=== PATIENT | male | born 1945 | race Caucasian/White ===

== ENCOUNTER 2017-08-06 05:54 | Inpatient (IN) | payer OTHER, MEDICARE ==
--- NOTE | 2017-08-05 08:58 | HP ---
Satellite [facility] - Chief Complaint Chief Complaint: right hip pain - Past Medical History Allergies/Adverse Reactions: Allergies Allergy/AdvReac Type Severity Reaction Status Date / Time No Known Allergies Allergy Verified 07/29/17 14:51 - Current Medications Current Medications: Home Medications Medication Instructions Recorded Ferrous Sulfate 325 mg PO DAILY 07/29/17 Glucosamine/Chondr Craig A Sod [Osteo 1 each PO DAILY 07/29/17 Bi-Flex Caplet] Hydrochlorothiazide 25 mg PO HS 07/29/17 Multivit-Min/FA/Lycopen/Lutein 1 each PO DAILY 07/29/17 [Centrum Silver Tablet] Ramipril 10 mg PO HS 07/29/17 Tamsulosin HCl 0.4 mg PO BID 07/29/17 Satellite Physical Exam - Physical Examination General Appearance: Well Nourished, Well Developed, Alert & Oriented x3 ENT: Clear Lung: Normal air movement Heart: Regular rate & rhythm Extremities: Other (right hip- + ttp, dec rom, nvi xrays show grade 4 hip djd) Neurological: Intact, Alert, Oriented Satellite Impression/Plan - Impression/Plan Impression: right hip djd Operative Procedure: right dejan thr Date to be Performed: 08/06/17
[2017-08-06] MEDS ORDERED: TRANEXAMIC ACID 1000 MG/10 ML VIAL IVPUSH ONE (06:38)
[2017-08-06] MEDS ORDERED: GABAPENTIN 300 MG CAPSULE (FP) PO ONE (06:38)
[2017-08-06] MEDS ORDERED: CEFAZOLIN 2 GM/D5W 2 GM/50 ML ML IVPB ONE (06:38)
[2017-08-06] MEDS ORDERED: oxyCODONE HCL 10 MG SUSTAINED ACTING TABLET PO ONE (06:38)
[2017-08-06] MEDS ORDERED: CELECOXIB 200 MG CAPSULE PO ONE (06:38)
[2017-08-06] MEDS ORDERED: CELECOXIB 200 MG CAPSULE ONE (06:41)
[2017-08-06] MEDS ORDERED: oxyCODONE HCL 10 MG SUSTAINED ACTING TABLET ONE (06:41)
[2017-08-06] MEDS ORDERED: GABAPENTIN 300 MG CAPSULE (FP) ONE (06:41)
[2017-08-06 07:04] VITALS: BMI 32.1
[2017-08-06] MEDS ORDERED: PROPOFOL 20 ML ONE ×3 (07:32)
[2017-08-06] MEDS ORDERED: ePHEDrine SULFATE 50 MG/1 ML AMPULE ONE ×2 (07:32→08:28)
[2017-08-06] MEDS ORDERED: SUCCINYLCHOLINE CHLORIDE 200 MG/10 ML VIAL ONE (07:32)
[2017-08-06] MEDS ORDERED: MIDAZOLAM HCL 2 MG/2 ML SINGLE DOSE VIAL ONE (07:37)
[2017-08-06] MEDS ORDERED: DEXAMETHASONE SOD PHOSPHATE/PF 10 MG/ML SDV ONE (07:37)
[2017-08-06] MEDS ORDERED: BUPIVACAINE HCL/PF (5 MG/ML) 30 ML VIAL IJ ONE (07:37)
[2017-08-06] MEDS ORDERED: VANCOMYCIN 1,000 MG VIAL (RESTRICTED TO ID ONLY) ONE (07:46)
[2017-08-06] MEDS ORDERED: ceFAZolin SODIUM 1 GM VIAL ONE ×2 (07:46→09:21)
[2017-08-06] MEDS ORDERED: BUPIVACAINE HCL/PF 0.5% (5MG/ML) 10 ML VIAL ONE (07:54)
[2017-08-06] MEDS ORDERED: TRANEXAMIC ACID 1000 MG/10 ML VIAL ONE ×2 (09:21)
[2017-08-06] MEDS ORDERED: MAG HYDROX/AL HYDROX/SIMETH 30 ML UNIT-DOSE CUP PO PRN (09:58)
[2017-08-06] MEDS ORDERED: LACTATED RINGERS SOLUTION 1,000 ML IV SCH (10:00)
--- NOTE | 2017-08-06 10:00 | OP ---
Operative Note - Note: Operative Date: 08/06/17 (janett) Pre-Operative Diagnosis: right hip djd Operation: right dejan thr Post-Operative Diagnosis: Same as Pre-op Surgeon: Jose Boyce Gamma Operator: Rashad Lundberg Anesthesiologist/VACUUM FILTER OPERATOR: Jose Sapp Anesthesia: Spinal, Local Specimens Removed: femoral head Estimated Blood Loss (mls): 100 Operative Report Dictated: Yes
[2017-08-06] MEDS ORDERED: oxyCODONE HCL 5 MG TABLET PO PRN (10:47)
[2017-08-06] MEDS ORDERED: ACETAMINOPHEN 325 MG TABLET (FP) PO ONE (10:56)
[2017-08-06] MEDS: ACETAMINOPHEN 325 MG TABLET (FP) PO SCH ×2 (11:34→16:24)
[2017-08-06] MEDS: SENNOSIDES/DOCUSATE COMBO (SENNA PLUS) TABLET (UD) PO SCH ×2 (12:41→21:47)
[2017-08-06] MEDS: MULTIVITAMINS (DAILY MVI) TABLET (FP) PO SCH (12:41)
[2017-08-06] MEDS: FERROUS SO4 325 MG TABLET (FP) PO SCH (12:42)
[2017-08-06] MEDS: PANTOPRAZOLE 40 MG TABLET (FP) PO SCH (12:42)
[2017-08-06] MEDS: oxyCODONE HCL 5 MG TABLET PO PRN ×3 (12:42→21:00)
[2017-08-06] MEDS: ONDANSETRON 4 MG/2 ML VIAL IVPUSH PRN ×2 (12:47→21:45)
--- NOTE | 2017-08-06 14:22 | SPEC ---
DATE OF OPERATION: 08/06/2017 PREOPERATIVE DIAGNOSIS: Degenerative joint disease right hip. POSTOPERATIVE DIAGNOSIS: Degenerative joint disease right hip. PROCEDURE PERFORMED: Right total hip replacement with robotic-assisted navigation (MAKOplasty). SURGICAL ATTENDING: Jose Boyce MD PILE TRIMMER: YADI Shea ANESTHESIA: Regional and spinal. CLOSURE: A 58 Tritanium press-fit acetabulum, a No. 6 femoral Accolade II stem, a metallic 36-mm +0 head, 2 screws in the acetabulum. Number 1 Vicryl for fascia, 0 and 2-0 subcutaneous, 3-0 Monocryl subcuticular for skin with skin glue. ESTIMATED BLOOD LOSS: Less than 100 mL. COMPLICATIONS: None. CONDITION: To the recovery room in stable condition. DESCRIPTION OF PROCEDURE: The patient was taken to the operating room on August 06, 2017. General and regional anesthesia was administered by the anesthesiologist. IV Kefzol and TXA were administered prophylactically prior to the case. The patient was placed in the lateral decubitus position will all prominences well-padded. The right hip area was prepped and draped in the usual sterile fashion. Using 3 small stab incisions over the iliac crest, 3 threaded pins were drilled in power fashion through the 2 tables of the crest. These pins were fastened and the navigation array for the [place] navigation system. Next, a 12 to 15-cm curved longitudinal incision over the posterolateral aspect of the greater trochanter was incised. Hemostasis was achieved with Bovie cautery. Sharp dissection was carried down to level of the fascia. The fascia was opened the entire length of the incision, spreading the fibers of the gluteus rogelio in the direction of origin. A Charnley retractor was placed in this layer. Care was taken not to impale the sciatic nerve. The short external rotators were detached off the insertion of the greater trochanter and peeled off the capsule. A posterior capsulotomy was then performed. A check point was malleted into the greater trochanter and a point on the inferior pole of the patella was obtained as well. These 2 points were used to assess the preoperative offset and limb lengths of the hip. The hip was then dislocated. The femoral neck was then osteotomized down to the appropriate level as directed by the navigation device. Anterior and posterior retractors were placed, exposing the acetabulum. A circumferential labral excision was performed. A check point was malleted into the acetabulum as well. Multiple sites inside the acetabulum and around the rim were utilized to register the acetabulum with the navigation device. An excellent registration of less than 0.5 mm was obtained. The hip was then reamed with the appropriate reamer down to the appropriate depth, with the appropriate orientation and version as assessed on our preoperative plan for this patient. The reamer was removed and the acetabulum was inspected to have good bleeding surfaces throughout. The real acetabular cup was then malleted down into place, with the holes in the appropriate position, until an excellent fixation was obtained. No screws were necessary. The navigation device ensured appropriate orientation and version, with the depth as predetermined. The appropriate liner was then clipped into place. Attention was directed to the femur. The proximal femur was prepared by use a box chisel, a canal finder and serial broaches until the broach achieved excellent rigidity in the proximal femur with the appropriate version being applied. A calcar planer was used to smooth off the calcar flush with the trial components. A trial reduction with the appropriate head was done, and the hip was reduced. The hip was taken through a range of motion from full extension with external rotation to marked flexion, and was stable at 90 degrees of flexion. It was stable to marked abduction and internal rotation, with a positive hang test and negative telescoping. Limb lengths were ascertained visually as well as with the navigation device to be within the targeted range for this patient. The trial component was removed. The real component was then malleted into place. The head was cold welded to the trunnion, and the hip was reduced. Range of motion, stability and limb lengths were as described in the trial component. Then the hip was pulse antibiotic irrigated. Vancomycin powder was placed in the hip joint. The capsule was closed. The fascia was then closed as well using number 1 Vicryl interrupted suture, 0 and 2-0 subcutaneous, and 3-0 Monocryl subcuticular for the skin. 4-0 undyed Vicryl was used to close the pin sites after the pins were removed. All check points were also removed. Sterile Aquacel dressing was applied. The patient was awakened from anesthesia and transferred into the supine position. Bilateral SCDs and an abduction pillow were placed. X-rays revealed excellent position of the components. The patient was transferred to the recovery room in stable condition, with no complications. Estimated blood loss was less than 100 mL. Julia [id number]
[2017-08-06] MEDS ORDERED: DESFLURANE GAS 240 ML BOTTLE IH ONE (14:41)
[2017-08-06] MEDS: CEFAZOLIN 2 GM/D5W 2 GM/50 ML ML IVPB SCH (16:23)
[2017-08-06] MEDS: TAMSULOSIN HCL 0.4 MG CAP.ER.24H (FP) PO SCH (18:38)
[2017-08-06] MEDS: HYDROCHLOROTHIAZIDE 25 MG TABLET (FP) PO SCH (21:47)
[2017-08-06] MEDS ORDERED: PATIENT'S OWN MEDICATION (NON-FORMULARY) (Ramipril [Ramipril] 10 MG) PO SCH (22:00)
[2017-08-07] MEDS: CEFAZOLIN 2 GM/D5W 2 GM/50 ML ML IVPB SCH (00:12)
[2017-08-07] MEDS: ACETAMINOPHEN 325 MG TABLET (FP) PO SCH ×4 (01:12→22:40)
--- NOTE | 2017-08-07 07:42 | PN ---
Progress Note (short form) - Note Progress Note: Ortho Pt seen and examined s/p right dejan thr pod #1 Selected Entries 08/07/17 04:48 Temperature 97.6 F Pulse Rate 88 Respiratory 18 Rate Blood Pressure 124/58 dressing c/d/i, calf soft, nt nvi cbc pending a/p PT hip precautions dvt ppx pain control d/c home tomorrow if stable
[2017-08-07 08:39] LABS: HEMOGLOBIN 11.7 GM/dl (11.7-16.9); MCH 30.6 pg (25.7-33.7); MCHC 33.4 g/dl (32.0-35.9); MEAN CELL VOLUME 91.6 fl (80-96); MEAN PLT VOLUME 8.5 fl (7.5-11.1); PLATELET COUNT 180 K/MM3 (134-434); RBC 3.82 M/mm3 (4.00-5.60); RDW 14.3 % (11.9-15.9); WHITE BLOOD COUNT 9.8 K/mm3 (4.0-10.8)
[2017-08-07] MEDS: SENNOSIDES/DOCUSATE COMBO (SENNA PLUS) TABLET (UD) PO SCH ×2 (10:29→21:22)
[2017-08-07] MEDS: FERROUS SO4 325 MG TABLET (FP) PO SCH (10:29)
[2017-08-07] MEDS: MULTIVITAMINS (DAILY MVI) TABLET (FP) PO SCH (10:29)
[2017-08-07] MEDS: KETOROLAC TROMETHAMINE 30 MG/1 ML VIAL IVPUSH SCH ×3 (10:29→20:20)
[2017-08-07] MEDS: PANTOPRAZOLE 40 MG TABLET (FP) PO SCH (10:29)
[2017-08-07] MEDS: TAMSULOSIN HCL 0.4 MG CAP.ER.24H (FP) PO SCH ×2 (10:29→18:28)
[2017-08-07] MEDS: ASPIRIN 325 MG TABLET PO SCH (10:31)
--- NOTE | 2017-08-07 12:05 | PN ---
Progress Note (short form) - Note Progress Note: 72M POD1 s/p R THR under spinal anesthetic with peripheral nerve blocks for post operative pain. Pt states that pain is well controlled, reports no anesthetic complications, sensory and motor function is intact in bilateral lower extremities.
[2017-08-07] MEDS: MAGNESIUM HYDROX 2400MG/30ML ORAL SUSPENSION 30 ML CUP PO PRN (16:09)
[2017-08-07] MEDS: ONDANSETRON 4 MG/2 ML VIAL IVPUSH PRN (20:20)
[2017-08-07] MEDS: HYDROCHLOROTHIAZIDE 25 MG TABLET (FP) PO SCH (20:21)
[2017-08-07] MEDS ORDERED: RAMIPRIL 5 MG CAPSULE (FP) PO SCH (22:00)
[2017-08-08 05:00] VITALS: BP 145/60; PULSE 88; TEMP 98.4
[2017-08-08] MEDS: ACETAMINOPHEN 325 MG TABLET (FP) PO SCH (05:53)
[2017-08-08] MEDS: KETOROLAC TROMETHAMINE 30 MG/1 ML VIAL IVPUSH SCH (05:54)
--- NOTE | 2017-08-08 07:56 | DS ---
Physical Examination Vital Signs: Vital Signs Temperature 98.4 F 08/08/17 04:58 Pulse Rate 88 08/08/17 04:58 Respiratory Rate 19 08/08/17 04:58 Blood Pressure 145/60 08/08/17 04:58 O2 Sat by Pulse Oximetry (%) 94 L 08/07/17 21:00 Labs: CBC, BMP 08/07/17 08:20 Discharge Summary Reason For Visit: OSTEOARTHRITIS Procedures: Principal: s/p right dejan thr Hospital Course: admitted for elective right dejan thr, uneventful post-op, stable for d/c Condition: Good - Instructions Diet, Activity, Other Instructions: Post-op Instructions-Total Hip Replacement Call the office for a follow-up appointment in 1 week - [phone] Aspirin 325mg daily for 6 weeks. Pain medication was sent into your pharmacy. Apply Graduated Compression Stockings (TEDs) to both lower extremities- remove daily for hygiene ONLY Apply Sequential Compression Device (SCDs) to both Lower extremities remove for PT and hygiene ONLY Apply cold packs to affected area for 15 minutes every 2 hours. Physical Therapist will come to your home for the first 5 days. You will be set up with outpatient PT at your first post-operative visit. Patient may ambulate as tolerated-encourage self care (at least every 2-3 hours while awake) with walker or cane Maintain Aquacel (waterproof) dressing to operative wound (will be removed by surgeon at first office visit) Shower with Aquacel dressing in place-if Aquacel integrity compromised, remove and apply dry sterile dressing and notify Orthopedist. DO NOT SHOWER unless Orthopedists approves without Aquacel dressing CONTACT THE OFFICE FOR ANY CHANGE IN YOUR CONDITION (for example-fever greater than 102 degrees, excessive bleeding from operative site, purulent drainage, severe swelling or pain) GO TO THE EMERGENCY ROOM IF THERE IS A MEDICAL EMERGENCY Hip Precautions: * Keep a rolled towel under affected heel while in bed or chair (to keep knee in extension) * Dependent upon approach: * Posterior - do not cross legs; do not sit on low chairs or toilets. * If you have any questions, please do not hesitate to call the office - [phone]. Referrals: Jose Boyce MD [Staff Physician] - Disposition: VNS/HOME HEALTH CARE - Home Medications Comprehensive Discharge Medication List: Ambulatory Orders Ferrous Sulfate 325 mg PO DAILY 07/29/17 Glucosamine/Chondr Craig A Sod [Osteo Bi-Flex Caplet] 1 each PO DAILY 07/29/17 Hydrochlorothiazide 25 mg PO HS 07/29/17 Multivit-Min/FA/Lycopen/Lutein [Centrum Silver Tablet] 1 each PO DAILY 07/29/17 Ramipril 10 mg PO HS 07/29/17 Tamsulosin HCl 0.4 mg PO BID 07/29/17 Aspirin [ASA -] 325 mg PO DAILY@0800 tablet 08/06/17 Oxycodone HCl/Acetaminophen [Percocet 5-325 mg Tablet] 1 - 2 tab PO Q6H #50 tab MDD 8 08/06/17
--- NOTE | 2017-08-08 07:56 | PN ---
Progress Note (short form) - Note Progress Note: Ortho Pt seen and examined s/p right dejan thr pod #2 Selected Entries 08/08/17 04:58 Temperature 98.4 F Pulse Rate 88 Respiratory 19 Rate Blood Pressure 145/60 Laboratory Tests 08/07/17 08:20 WBC 9.8 Hgb 11.7 Hct 35.0 L Plt Count 180 dressing c/d/i, calf soft, nt nvi a/p PT hip precautions dvt ppx pain control d/c home tomorrow if stable
[2017-08-08 08:52] LABS: HEMATOCRIT 34.8 % (35.4-49); HEMOGLOBIN 11.6 GM/dl (11.7-16.9); MCH 30.5 pg (25.7-33.7); MCHC 33.5 g/dl (32.0-35.9); MEAN CELL VOLUME 91.2 fl (80-96); MEAN PLT VOLUME 8.5 fl (7.5-11.1); PLATELET COUNT 177 K/MM3 (134-434); RBC 3.81 M/mm3 (4.00-5.60); RDW 14.3 % (11.9-15.9); WHITE BLOOD COUNT 10.3 K/mm3 (4.0-10.8)
[2017-08-08] MEDS: ASPIRIN 325 MG TABLET PO SCH (10:02)
[2017-08-08] MEDS: SENNOSIDES/DOCUSATE COMBO (SENNA PLUS) TABLET (UD) PO SCH (10:02)
[2017-08-08] MEDS: PANTOPRAZOLE 40 MG TABLET (FP) PO SCH (10:02)
[2017-08-08] MEDS: TAMSULOSIN HCL 0.4 MG CAP.ER.24H (FP) PO SCH (10:02)
[2017-08-08] MEDS: FERROUS SO4 325 MG TABLET (FP) PO SCH (10:02)
[2017-08-08] MEDS: MULTIVITAMINS (DAILY MVI) TABLET (FP) PO SCH (10:03)
[2017-08-08] MEDS: MAGNESIUM HYDROX 2400MG/30ML ORAL SUSPENSION 30 ML CUP PO PRN (10:03)
--- NOTE | 2017-08-13 16:29 | PATH ---
Surgical Pathology Report Patient Name: CASTILLO DALY Med. Rec. #: [id number] /Age/Gender: 1945 (Age: 72) / M Account: [id number] Location: [facility] Taken: 08/06/2017 Received: 08/06/2017 Reported: 08/13/2017 Physicians: Jose Boyce M.D. Specimen(s) Received RIGHT FEMORAL HEAD Clinical History Osteoarthritis Final Diagnosis FEMORAL HEAD, RIGHT, TOTAL HIP REPLACEMENT: DEGENERATIVE JOINT DISEASE. Electronically Signed Wendy Buckley M.D. Gross Description Received in formalin, labeled "right femoral head," is a 4.7 x 4.7 x 4.0 cm. femoral head with 0.8 cm in length portion of femoral neck attached. The margin of resection is smooth. There is a 3.0 cm in greatest dimension area of eburnation present. The remaining articular surface is ignacio-yellow and diffusely granular. The underlying trabecular bone is yellow and hard. A regional sales representative section is submitted in one cassette, following decalcification. 08/07/201708/07/2017
== END 2017-08-08 12:15 | disposition home health service (06) | DRG 470 ==
LOC: FM/S 05:54
PROVIDERS: ADMIT Orthopaedic Surgery; ATTEND Orthopaedic Surgery
PROC: 8E0Y0CZ Robotic Assisted Procedure of Lower Extremity, Open Approach (ICD-10-PCS; 2017-08-06)
PROC: 0SR90JZ Replacement of Right Hip Joint with Synthetic Substitute, Open Approach (ICD-10-PCS; principal; 2017-08-06 08:32)
DX: M16.11 Unilateral primary osteoarthritis, right hip (principal); I10 Essential (primary) hypertension
CPT/HCPCS: 36415; 73502-TC-RT; 85027; 94010; 94760; 97116-GP; 97162-GP

== ENCOUNTER 2023-04-08 07:35 | Day surgery (SDC) | payer OTHER ==
[2023-04-04 13:28] VITALS: BMI 34.0
[2023-04-08] MEDS ORDERED: TRANEXAMIC ACID 1000 MG/10 ML VIAL ONE ×3 (09:14→13:51)
[2023-04-08] MEDS ORDERED: THROMBIN (BOVINE) 5,000 UNIT VIAL TP ONE (09:14)
[2023-04-08] MEDS ORDERED: VANCOMYCIN 1,000 MG VIAL (RESTRICTED TO ID ONLY) ONE ×2 (09:14→11:45)
[2023-04-08] MEDS ORDERED: MIDAZOLAM HCL 2 MG/2 ML SINGLE DOSE VIAL ONE ×2 (09:37→13:59)
[2023-04-08] MEDS ORDERED: ROPIVACAINE HCL 0.5% 30ML VIAL ONE (09:37)
[2023-04-08] MEDS ORDERED: ONDANSETRON 4 MG/2 ML VIAL ONE (09:37)
[2023-04-08] MEDS ORDERED: DEXAMETHASONE SOD PHOSPHATE 4 MG/1 ML VIAL ONE (09:37)
[2023-04-08] MEDS ORDERED: CEFAZOLIN 2 GM in DEXTROSE 5%-WATER - 50 ML IVPB ONE (11:00)
[2023-04-08] MEDS ORDERED: BUPIVACAINE HCL/PF 0.5% (5MG/ML) 10 ML VIAL ONE (11:11)
[2023-04-08] MEDS ORDERED: ceFAZolin SODIUM 1 GM VIAL ONE (11:38)
[2023-04-08] MEDS ORDERED: ePHEDrine SULFATE 50 MG/1 ML AMPULE ONE (12:13)
[2023-04-08] MEDS ORDERED: BUPIVICAINE 0.25%/MORPH PF/KETOROLAC - 51ML DISP.SYRINGE IA ONE ×2 (12:41→14:10)
[2023-04-08] MEDS ORDERED: PROPOFOL 20 ML ONE (13:28)
[2023-04-08] MEDS ORDERED: VANCOMYCIN 1,000 MG VIAL (RESTRICTED TO ID ONLY) IVPB ONE (13:54)
[2023-04-08] MEDS ORDERED: KETAMINE HCL 200 MG/20 ML VIAL ONE (14:12)
[2023-04-08] MEDS ORDERED: ACETAMINOPHEN 1000 MG/100 ML BAG IVPB ONE (14:58)
[2023-04-08] MEDS ORDERED: oxyCODONE HCL 5 MG TABLET PO PRN (14:58)
[2023-04-08] MEDS ORDERED: LACTATED RINGERS SOLUTION 1,000 ML IV SCH ×2 (15:00→15:15)
[2023-04-08] MEDS ORDERED: FENTANYL CITRATE/PF 50 MCG/ML VIAL ONE ×2 (15:09→15:29)
[2023-04-08] MEDS ORDERED: MAGNESIUM HYDROX 2400MG/30ML ORAL SUSPENSION 30 ML CUP PO PRN (15:14)
[2023-04-08] MEDS ORDERED: MAG HYDROX/AL HYDROX/SIMETH 30 ML UNIT-DOSE CUP PO PRN (15:14)
[2023-04-08] MEDS ORDERED: ONDANSETRON 4 MG/2 ML VIAL IVPUSH PRN (15:14)
[2023-04-08] MEDS: oxyCODONE HCL 5 MG TABLET PO PRN (18:17)
[2023-04-08] MEDS ORDERED: TRANEXAMIC ACID 1000 MG/10 ML VIAL IVPUSH ONE (20:28)
[2023-04-08] MEDS: GABAPENTIN 300 MG CAPSULE PO SCH (21:47)
[2023-04-08] MEDS: CEFAZOLIN SODIUM 2 GM in DEXTROSE 5%-WATER 100 ML IVPB SCH (21:47)
[2023-04-08] MEDS: SENNOSIDES/DOCUSATE COMBO (SENNA PLUS) TABLET (UD) PO SCH (21:47)
[2023-04-08] MEDS: ACETAMINOPHEN 500 MG TABLET (FP) PO SCH (21:48)
[2023-04-08] MEDS: TAMSULOSIN HCL 0.4 MG CAP PO SCH (21:48)
[2023-04-09] MEDS: ACETAMINOPHEN 500 MG TABLET (FP) PO SCH ×2 (03:07→09:23)
[2023-04-09] MEDS: CEFAZOLIN SODIUM 2 GM in DEXTROSE 5%-WATER 100 ML IVPB SCH (04:45)
[2023-04-09] MEDS: oxyCODONE HCL 5 MG TABLET PO PRN ×2 (06:07→09:22)
[2023-04-09 08:24] LABS: HEMATOCRIT 30.8 % (35.4-49); HEMOGLOBIN 9.9 G/dL (11.7-16.9); MCH 30.9 pg (25.7-33.7); MCHC 32.1 g/dl (32.0-35.9); MEAN CELL VOLUME 96.4 fl (80-96); MEAN PLT VOLUME 8.3 fl (7.5-11.1); PLATELET COUNT 205.6 10^3/uL (134-434); RDW 17.1 % (11.9-15.9)
[2023-04-09 08:32] LABS: BLOOD UREA NITROGEN 20.4 mg/dl (7-18); CALCIUM 7.9 mg/dl (8.5-10.1); CREATININE 0.8 mg/dl (0.6-1.3); POTASSIUM 4.4 mmol/L (3.5-5.1)
[2023-04-09] MEDS: SENNOSIDES/DOCUSATE COMBO (SENNA PLUS) TABLET (UD) PO SCH (09:20)
[2023-04-09] MEDS: GABAPENTIN 300 MG CAPSULE PO SCH (09:21)
[2023-04-09] MEDS: TAMSULOSIN HCL 0.4 MG CAP PO SCH (09:21)
[2023-04-09 09:32] VITALS: BP 128/54; PULSE 96; RESP 18; TEMP 99.2
[2023-04-09] MEDS ORDERED: ASPIRIN 81 MG CHEWABLE TABLETS PO SCH (10:00)
[2023-04-09] MEDS ORDERED: PATIENT'S OWN MEDICATION (NON-FORMULARY) (Omeprazole [Omeprazole] 20 MG Tablet.Dr) PO SCH (10:00)
[2023-04-09] MEDS ORDERED: RAMIPRIL 5 MG CAPSULE PO SCH (10:00)
[2023-04-09] MEDS ORDERED: amLODIPine BESYLATE 10 MG TABLET (FP) PO SCH (10:00)
[2023-04-09] MEDS ORDERED: FUROSEMIDE 20 MG TABLET (FP) PO SCH (10:00)
[2023-04-09] MEDS ORDERED: PANTOPRAZOLE 40 MG TABLET PO SCH (10:00)
[2023-04-09] MEDS ORDERED: valACYclovir HCL 500 MG TABLET (FP) PO SCH (10:00)
== END 2023-04-09 11:48 | disposition home or self-care (01) ==
LOC: FASUSAT 07:35 → SUATTDRO 07:35 → FM/S 16:21 → FASUSAT 04-09 11:48
PROVIDERS: ATTEND Internal Medicine
PROC: 8E0Y0CZ Robotic Assisted Procedure of Lower Extremity, Open Approach (ICD-10-PCS; 2023-04-08)
PROC: 0SRB0JA Replacement of Left Hip Joint with Synthetic Substitute, Uncemented, Open Approach (ICD-10-PCS; principal; 2023-04-08 12:15)
DX: M16.12 Unilateral primary osteoarthritis, left hip (principal)
CPT/HCPCS: 20985; 27130; C1776; S2900; 36415; 73502-TC-LT-FY; 80048; 85027; 86850; 86900; 86901; 88305-TC; 88311-TC; 94760; 97010-GP; 97116-GP; 97162-GP; C1889

== ENCOUNTER 2024-05-10 16:17 | Emergency (ER) | payer OTHER ==
[2024-05-10 16:28] VITALS: BP 168/90; TEMP 98.2; BMI 33.4
[2024-05-10 18:37] LABS: EPI CELLS 6 /uL (0-25.1); HYALINE CASTS 2 /uL (0-3.1); URINE APPEARANCE CLOUDY; URINE BACTERIA 6 /uL (0-1359); URINE BILIRUBIN NEGATIVE (NEGATIVE); URINE COLOR ORANGE; URINE GLUCOSE (UA) NEGATIVE (NEGATIVE); URINE KETONE NEGATIVE (NEGATIVE); URINE LEUK ESTERASE 1+ (NEGATIVE); URINE NITRITE NEGATIVE (NEGATIVE); URINE PROTEIN 2+ (NEGATIVE); URINE RBC 27785 /uL (0-23.9); URINE WBC 45 /uL (0-25.8)
[2024-05-10 19:12] VITALS: PULSE 72; RESP 18
== END 2024-05-10 19:12 | disposition home or self-care (01) ==
LOC: JER 16:17
PROC: 0T2BX0Z Change Drainage Device in Bladder, External Approach (ICD-10-PCS; principal; 2024-05-10)
DX: R33.9 Retention of urine, unspecified (principal)
CPT/HCPCS: 76775-TC; 81003; 87086; 99284-25

== ENCOUNTER 2024-05-12 10:54 | Emergency (ER) | payer OTHER ==
[2024-05-12 11:02] VITALS: BP 132/66; PULSE 110; RESP 16; TEMP 97.8; BMI 29.4
[2024-05-12] MEDS ORDERED: LIDOCAINE HCL 2% JELLY 6 ML TP ONE (13:16)
[2024-05-12] MEDS: LIDOCAINE HCL 2% JELLY 10 ML CARTRIDGE UR ONE (13:37)
== END 2024-05-12 13:56 | disposition home or self-care (01) ==
LOC: JER 10:54
DX: N36.8 Other specified disorders of urethra (principal); R31.9 Hematuria, unspecified
CPT/HCPCS: 99284-25

== ENCOUNTER 2024-05-15 19:32 | Emergency (ER) | payer OTHER ==
[2024-05-15 19:40] VITALS: RESP 18; TEMP 97.6; BMI 28.7
[2024-05-15 21:15] LABS: EPI CELLS 5 /uL (0-25.1); HYALINE CASTS 2 /uL (0-3.1); URINE APPEARANCE CLOUDY; URINE BILIRUBIN 1+ (NEGATIVE); URINE COLOR RED; URINE GLUCOSE (UA) NEGATIVE (NEGATIVE); URINE KETONE NEGATIVE (NEGATIVE); URINE LEUK ESTERASE 2+ (NEGATIVE); URINE NITRITE POSITIVE (NEGATIVE); URINE PROTEIN 3+ (NEGATIVE); URINE RBC 9680 /uL (0-23.9); URINE UROBILINOGEN 0.2 mg/dL (0.2-1.0); URINE WBC 121 /uL (0-25.8)
[2024-05-15] MEDS ORDERED: CEPHALEXIN MONOHYDRATE 500 MG CAPSULE (UD) ONE (21:53)
[2024-05-15 22:18] LABS: HEMATOCRIT 25.2 % (35.4-49); MCH 25.9 pg (25.7-33.7); MCHC 31.8 g/dl (32.0-35.9); MEAN CELL VOLUME 81.7 fl (80-96); MEAN PLT VOLUME 6.6 fl (7.5-11.1); PLATELET COUNT 243 10^3/uL (134-434); RBC 3.09 M/mm3 (4.00-5.60); RDW 23.5 % (11.9-15.9); WHITE BLOOD COUNT 8.1 K/mm3 (4.0-10.0)
[2024-05-15] MEDS: CEPHALEXIN MONOHYDRATE 500 MG CAPSULE (UD) PO ONE ×2 (22:20→22:23)
[2024-05-15 22:26] LABS: ADD RBC MORPHOLOGY YES
[2024-05-15 22:31] LABS: INR 1.06 (0.83-1.09); PROTHROMBIN TIME (PATIENT) 12.2 SEC (9.7-13.0)
[2024-05-15 22:34] LABS: ACTIVATED PTT 27.6 SECONDS (25.2-36.5)
[2024-05-15 22:52] LABS: ANISOCYTOSIS 2+; MACROCYTOSIS 0
[2024-05-15 22:59] LABS: POTASSIUM 3.7 mmol/L (3.5-5.1)
[2024-05-15 23:01] LABS: ALBUMIN 1.7 g/dl (3.4-5.0); BLOOD UREA NITROGEN 33.2 mg/dL (7-18); CALCIUM 8.2 mg/dL (8.5-10.1)
[2024-05-15 23:04] LABS: CREATININE 1.1 mg/dL (0.55-1.3)
[2024-05-15 23:06] LABS: BILIRUBIN,TOTAL 0.3 mg/dL (0.2-1); TOT PROT 8.8 g/dl (6.4-8.2)
[2024-05-16 01:12] VITALS: BP 131/70; PULSE 88
== END 2024-05-16 01:59 | disposition home or self-care (01) ==
LOC: JER 19:32
DX: T83.091A Other mechanical complication of indwelling urethral catheter, initial encounter (principal); R31.9 Hematuria, unspecified; N30.90 Cystitis, unspecified without hematuria; R33.9 Retention of urine, unspecified
CPT/HCPCS: 36415; 74176-TC; 80053; 81003; 85025; 85610; 85730; 86850; 86900; 86901; 87086; 99284-25

== ENCOUNTER 2024-05-17 14:21 | Emergency (ER) | payer OTHER ==
[2024-05-17 14:32] VITALS: BP 126/63; PULSE 99; RESP 16; TEMP 98.4; BMI 28.7
[2024-05-17] MEDS ORDERED: LIDOCAINE HCL 2% JELLY 6 ML TP ONE (17:04)
== END 2024-05-17 17:57 | disposition home or self-care (01) ==
LOC: JER 14:21
DX: T83.091A Other mechanical complication of indwelling urethral catheter, initial encounter (principal); R31.9 Hematuria, unspecified; R33.9 Retention of urine, unspecified
CPT/HCPCS: 99283-25

== ENCOUNTER 2024-05-19 12:46 | Inpatient (IN) | payer OTHER ==
[2024-05-19] MEDS ORDERED: LIDOCAINE HCL 2% JELLY 6 ML TP ONE (14:28)
[2024-05-19] MEDS: LIDOCAINE HCL 2% JELLY 10 ML CARTRIDGE UR ONE (14:38)
[2024-05-19] MEDS: LIDOCAINE HCL 2% JELLY 6 ML TP ONE (14:39)
[2024-05-19 14:54] LABS: BASO % 0.6 % (0-2.0); EOS % 1.2 % (0-4.5); HEMATOCRIT 23.2 % (35.4-49); HEMOGLOBIN 7.3 GM/dL (11.7-16.9); INR 1.13 (0.83-1.09); MCHC 31.4 g/dl (32.0-35.9); MEAN CELL VOLUME 82.7 fl (80-96); MEAN PLT VOLUME 7.3 fl (7.5-11.1); MONO % 14.1 % (3.8-10.2); NEUT % 73.1 % (42.8-82.8); PLATELET COUNT 245 10^3/uL (134-434); RDW 24.4 % (11.9-15.9)
[2024-05-19 15:25] LABS: POTASSIUM 4.6 mmol/L (3.5-5.1)
[2024-05-19 15:26] LABS: ANISOCYTOSIS 2+; MACROCYTOSIS 0
[2024-05-19 15:27] LABS: CALCIUM 8.9 mg/dL (8.5-10.1)
[2024-05-19 15:28] LABS: ALBUMIN 1.8 g/dl (3.4-5.0)
[2024-05-19 15:31] LABS: CREATININE 1.1 mg/dL (0.55-1.3)
[2024-05-19 15:32] LABS: BILIRUBIN,TOTAL 0.4 mg/dL (0.2-1); TOT PROT 9.2 g/dl (6.4-8.2)
[2024-05-19] MEDS ORDERED: ONDANSETRON *ODT* 4 MG TABLET SL PRN (18:37)
[2024-05-19] MEDS: TAMSULOSIN HCL 0.4 MG CAP PO ONE (18:46)
[2024-05-19] MEDS ORDERED: CEFTRIAXONE 1 GM/50 ML BAG ONE (20:19)
[2024-05-19] MEDS: CEFTRIAXONE 1 G/50 ML PREMIX 50 ML IVPB SCH (20:32)
[2024-05-19] MEDS: TAMSULOSIN HCL 0.4 MG CAP PO SCH (23:07)
[2024-05-19] MEDS: ATORVASTATIN CA 10 MG TABLET (FP) PO SCH (23:07)
[2024-05-20 00:51] VITALS: BMI 28.9
[2024-05-20] MEDS: ACETAMINOPHEN 500 MG TABLET (FP) PO PRN (01:29)
[2024-05-20 09:54] LABS: BASO % 0.5 % (0-2.0); EOS % 0.6 % (0-4.5); HEMATOCRIT 24.5 % (35.4-49); HEMOGLOBIN 7.7 GM/dL (11.7-16.9); LYMPH % 8.6 % (8-40); MCH 26.1 pg (25.7-33.7); MCHC 31.4 g/dl (32.0-35.9); MEAN CELL VOLUME 83.1 fl (80-96); MEAN PLT VOLUME 7.3 fl (7.5-11.1); MONO % 10.2 % (3.8-10.2); NEUT % 80.1 % (42.8-82.8); PLATELET COUNT 257 10^3/uL (134-434); RBC 2.95 M/mm3 (4.00-5.60); RDW 24.7 % (11.9-15.9); WHITE BLOOD COUNT 8.7 K/mm3 (4.0-10.0)
[2024-05-20] MEDS: valACYclovir HCL 500 MG TABLET (FP) PO SCH (10:02)
[2024-05-20 10:19] LABS: POTASSIUM 3.8 mmol/L (3.5-5.1)
[2024-05-20 10:23] LABS: CALCIUM 9.1 mg/dL (8.5-10.1)
[2024-05-20 10:27] LABS: CREATININE 0.9 mg/dL (0.55-1.3)
[2024-05-20] MEDS ORDERED: ACETAMINOPHEN 1000 MG/100 ML BAG IVPB PRN (10:40)
[2024-05-20] MEDS: ACETAMINOPHEN 1000 MG/100 ML BAG IVPB PRN ×2 (10:56→17:19)
[2024-05-20] MEDS ORDERED: PROPOFOL 20 ML ONE (16:19)
[2024-05-20] MEDS ORDERED: MIDAZOLAM HCL 2 MG/2 ML SINGLE DOSE VIAL ONE (16:19)
[2024-05-20] MEDS ORDERED: LIDOCAINE HCL/PF 2% SDV 5ML VIAL ONE (16:24)
[2024-05-20] MEDS ORDERED: ONDANSETRON 4 MG/2 ML VIAL ONE (16:30)
[2024-05-20] MEDS ORDERED: SEVOFLURANE 250 ML BTL ONE (16:39)
[2024-05-20] MEDS ORDERED: ONDANSETRON 4 MG/2 ML VIAL IVPUSH PRN (16:56)
[2024-05-20] MEDS ORDERED: oxyCODONE HCL 5 MG TABLET PO PRN (16:56)
[2024-05-20] MEDS ORDERED: ONDANSETRON *ODT* 4 MG TABLET SL PRN (17:03)
[2024-05-20] MEDS ORDERED: ACETAMINOPHEN 500 MG TABLET (FP) PO PRN (17:03)
[2024-05-20] MEDS ORDERED: ACETAMINOPHEN INJECTION 100 ML ONE (17:18)
[2024-05-20] MEDS: LACTATED RINGERS SOLUTION 1,000 ML IV SCH (17:20)
[2024-05-20] MEDS: ATORVASTATIN CA 10 MG TABLET (FP) PO SCH (21:25)
[2024-05-20] MEDS: TAMSULOSIN HCL 0.4 MG CAP PO SCH (21:25)
[2024-05-21] MEDS: valACYclovir HCL 500 MG TABLET (FP) PO SCH (09:45)
[2024-05-21] MEDS: CEFTRIAXONE 1 G/50 ML PREMIX 50 ML IVPB SCH (09:46)
[2024-05-21 09:58] LABS: HEMATOCRIT 23.9 % (35.4-49); HEMOGLOBIN 7.5 GM/dL (11.7-16.9); MCH 25.7 pg (25.7-33.7); MCHC 31.2 g/dl (32.0-35.9); MEAN CELL VOLUME 82.3 fl (80-96); PLATELET COUNT 240 10^3/uL (134-434); RBC 2.91 M/mm3 (4.00-5.60); RDW 24.6 % (11.9-15.9); WHITE BLOOD COUNT 6.8 K/mm3 (4.0-10.0)
[2024-05-21 10:10] LABS: POTASSIUM 3.8 mmol/L (3.5-5.1)
[2024-05-21 10:25] LABS: ALBUMIN 1.8 g/dl (3.4-5.0); CALCIUM 8.6 mg/dL (8.5-10.1)
[2024-05-21 10:26] LABS: BLOOD UREA NITROGEN 15.5 mg/dL (7-18); MAGNESIUM 1.8 mg/dL (1.8-2.4)
[2024-05-21 10:29] LABS: CREATININE 0.9 mg/dL (0.55-1.3)
[2024-05-21 10:30] LABS: BILIRUBIN,TOTAL 0.5 mg/dL (0.2-1); TOT PROT 9.2 g/dl (6.4-8.2)
[2024-05-21 10:51] LABS: ANISOCYTOSIS 2+; MACROCYTOSIS 0
[2024-05-21 14:23] VITALS: BP 111/51; PULSE 108; RESP 20; TEMP 99
== END 2024-05-21 15:34 | disposition home or self-care (01) | DRG 666 ==
LOC: JER 12:46 → JERBED 16:34 → OBSVTOIN 18:29 → J8W 21:35
PROVIDERS: ADMIT Internal Medicine
PROC: 3C1ZX8Z Irrigation of Indwelling Device using Irrigating Substance, External Approach (ICD-10-PCS; 2024-05-20)
PROC: 0VT08ZZ Resection of Prostate, Via Natural or Artificial Opening Endoscopic (ICD-10-PCS; principal; 2024-05-20 16:00)
PROC: 0V508ZZ Destruction of Prostate, Via Natural or Artificial Opening Endoscopic (ICD-10-PCS; 2024-05-20 16:00)
DX: R33.8 Other retention of urine (principal); C90.00 Multiple myeloma not having achieved remission; N32.89 Other specified disorders of bladder; R31.0 Gross hematuria; I10 Essential (primary) hypertension; Z85.46 Personal history of malignant neoplasm of prostate; D64.9 Anemia, unspecified
CPT/HCPCS: 36415; 80048; 80053; 83735; 85025; 85610; 85730; 88305-TC; 94760; 99285-25; G0378; J0131

== ENCOUNTER 2024-05-30 06:40 | Emergency (ER) | payer OTHER ==
[2024-05-30 06:47] VITALS: RESP 18; BMI 28.3
[2024-05-30 08:40] LABS: HEMATOCRIT 22.9 % (35.4-49); HEMOGLOBIN 7.3 GM/dL (11.7-16.9); MCH 26.8 pg (25.7-33.7); MCHC 31.7 g/dl (32.0-35.9); MEAN CELL VOLUME 84.7 fl (80-96); MEAN PLT VOLUME 7.3 fl (7.5-11.1); PLATELET COUNT 222 10^3/uL (134-434); RDW 24.4 % (11.9-15.9); WHITE BLOOD COUNT 8.3 K/mm3 (4.0-10.0)
[2024-05-30 08:56] LABS: ACTIVATED PTT 28.5 SECONDS (25.2-36.5); INR 1.11 (0.83-1.09); PROTHROMBIN TIME (PATIENT) 12.5 SEC (9.7-13.0)
[2024-05-30 08:57] LABS: POTASSIUM 3.7 mmol/L (3.5-5.1)
[2024-05-30 09:00] LABS: ALBUMIN 1.7 g/dl (3.4-5.0); CALCIUM 9.3 mg/dL (8.5-10.1)
[2024-05-30 09:03] LABS: CREATININE 1.1 mg/dL (0.55-1.3)
[2024-05-30 09:05] LABS: BILIRUBIN,TOTAL 0.4 mg/dL (0.2-1)
[2024-05-30 11:21] LABS: ANISOCYTOSIS 3+; MACROCYTOSIS 0
[2024-05-30 15:38] VITALS: BP 146/76; PULSE 108; TEMP 98.9
== END 2024-05-30 15:47 | disposition home or self-care (01) ==
LOC: JER 06:40
DX: D64.9 Anemia, unspecified (principal); R53.83 Other fatigue; R53.1 Weakness
CPT/HCPCS: 36415; 36430; 80053; 85025; 85610; 85730; 86850; 86900; 86901; 86922; 93005; 93010; 99285-25; P9058